=== PATIENT | female | born 1990 | race American Indian/Alaskan Native ===

== ENCOUNTER 2017-08-20 12:19 | Emergency (ER) | payer MEDICAID ==
[2017-08-20 12:58] VITALS: BP 140/72
[2017-08-20] MEDS ORDERED: TESSALON PERLES PO ONE (15:13)
[2017-08-20] MEDS ORDERED: MOTRIN PO ONE (15:13)
--- NOTE | 2017-08-20 16:14 | Emergency Department Report ---
- General Chief Complaint: Upper Respiratory Infection Stated Complaint: COUGH/COLD Time Seen by Provider: 08/20/17 15:11 Source: patient Mode of arrival: Ambulatory Limitations: No Limitations - History of Present Illness Initial Comments: This is a 26-year-old female nontoxic, well nourished in appearance, no acute signs of distress presents to the ED with c/o of productive cough, sore throat, rhinorrhea, nasal congestion, and frontal sinus pain x3 days. Patient describers productive cough as yellow/green mucus production. Patient denies any body aches. Patient denies any recent travels, long car rides, recent hospital stays. Patient denies any calf pain or calf tenderness. Denies any hemoptysis. Patient denies chest pain, shortness of breath, fever, chills, nausea, vomiting, headache, stiff neck, numbness, tingling. Patient states allergies to PCN. Denies significant PMH. MD Complaint: cough, rhinorrhea, nasal congestion, sinus pain -: days(s) (3) Severity: mild Severity scale (0 -10): 8 Quality: aching Consistency: constant Improves With: nothing Worsens With: nothing Associated Symptoms: headache (frontal sinus pain), rhinorrhea, nasal congestion , sore throat, cough. denies: fever, chills, myalgias, diaphoresis, stiff neck , chest pain, shortness of breath, abdominal pain, nausea, vomiting, diarrhea, dysuria, rash, confusion, right sweats, weight loss, epistaxis, hoarseness, ear pain Treatments Prior to Arrival: none - Related Data Previous Rx's Medication Instructions Recorded Last Taken Type Ibuprofen [Motrin] 800 mg PO Q8H PRN #30 tablet 12/18/14 Unknown Rx Phenazopyridine [Pyridium] 100 mg PO PC #10 tablet 12/18/14 Unknown Rx Sulfamethoxazole/Trimethoprim 1 each PO BID #14 tablet 12/18/14 Unknown Rx [Bactrim Ds] traMADol [Ultram] 50 mg PO Q6HR PRN #14 tablet 12/18/14 Unknown Rx Ibuprofen [Motrin] 800 mg PO Q8HR PRN #15 tablet 04/15/15 Unknown Rx methylPREDNISolone [Medrol Dose 4 mg PO QAM #1 pack 04/15/15 Unknown Rx Fly] Hyoscyamine Subl [Levsin Sl 0.125 0.125 mg SL Q6HR PRN #14 tablet 07/30/15 Unknown Rx TAB] Ondansetron [Zofran Odt] 4 mg PO Q4H PRN #14 tab.rapdis 07/30/15 Unknown Rx traMADol [Ultram] 50 mg PO Q6HR PRN #20 tablet 07/30/15 Unknown Rx Oxycodone HCl/Acetaminophen 1 each PO Q6HR PRN #15 tablet 09/03/15 Unknown Rx [Percocet 7.5/325 mg] Ondansetron [Zofran Odt] 4 mg PO Q8HR #15 tab.rapdis 09/04/15 Unknown Rx Ferrous Sulfate [Feosol 325 MG tab] 325 mg PO BID #60 tablet 06/15/16 Unknown Rx Ibuprofen [Motrin 800 MG tab] 800 mg PO Q8HR PRN #30 tablet 06/15/16 Unknown Rx Vit-Fe Fumar-FA [ 1 tab PO QDAY #30 tablet 06/15/16 Unknown Rx Vitamin] oxyCODONE /ACETAMINOPHEN [Percocet 1 tab PO Q6HR PRN #40 tablet 06/15/16 Unknown Rx 5/325] Azithromycin [Zithromax Z-FLY] 250 mg PO DAILY #6 tablet 08/20/17 Unknown Rx Allergies Allergy/AdvReac Type Severity Reaction Status Date / Time Penicillins Allergy Swelling Verified 08/20/17 12:53 ED Review of Systems ROS: Stated complaint: COUGH/COLD Other details as noted in HPI Constitutional: denies: chills, fever Eyes: denies: eye pain, eye discharge, vision change ENT: denies: ear pain, throat pain Respiratory: cough. denies: shortness of breath, wheezing Cardiovascular: denies: chest pain, palpitations Endocrine: no symptoms reported Gastrointestinal: denies: abdominal pain, nausea, diarrhea Genitourinary: denies: urgency, dysuria, discharge Musculoskeletal: denies: back pain, joint swelling, arthralgia Skin: denies: rash, lesions Neurological: denies: headache, weakness, paresthesias Psychiatric: denies: anxiety, depression Hematological/Lymphatic: denies: easy bleeding, easy bruising ED Past Medical Hx - Past Medical History Previous Medical History?: Yes Hx Hypertension: No Hx Congestive Heart Failure: No Hx Diabetes: No Hx Deep Vein Thrombosis: No Hx Renal Disease: No Hx Sickle Cell Disease: No Hx Seizures: No Hx Asthma: No Hx COPD: No Hx HIV: No Additional medical history: morbid obesity - Surgical History Past Surgical History?: Yes Additional Surgical History: right ankle surgery, tonsillectomy - Social History Smoking Status: Never Smoker Substance Use Type: None - Medications Home Medications: Home Medications Medication Instructions Recorded Confirmed Last Taken Type Ibuprofen [Motrin] 800 mg PO Q8H PRN #30 tablet 12/18/14 06/15/16 Unknown Rx Phenazopyridine [Pyridium] 100 mg PO PC #10 tablet 12/18/14 06/15/16 Unknown Rx Sulfamethoxazole/Trimethoprim 1 each PO BID #14 tablet 12/18/14 06/15/16 Unknown Rx [Bactrim Ds] traMADol [Ultram] 50 mg PO Q6HR PRN #14 tablet 12/18/14 06/15/16 Unknown Rx Ibuprofen [Motrin] 800 mg PO Q8HR PRN #15 tablet 04/15/15 06/15/16 Unknown Rx methylPREDNISolone [Medrol Dose 4 mg PO QAM #1 pack 04/15/15 06/15/16 Unknown Rx Fly] Hyoscyamine Subl [Levsin Sl 0.125 0.125 mg SL Q6HR PRN #14 tablet 07/30/1506/15 Unknown Rx TAB] Ondansetron [Zofran Odt] 4 mg PO Q4H PRN #14 tab.rapdis 07/30/15 06/15/16 Unknown Rx traMADol [Ultram] 50 mg PO Q6HR PRN #20 tablet 07/30/15 06/15/16 Unknown Rx Oxycodone HCl/Acetaminophen 1 each PO Q6HR PRN #15 tablet 09/03/15 06/15/16 Unknown Rx [Percocet 7.5/325 mg] Ondansetron [Zofran Odt] 4 mg PO Q8HR #15 tab.rapdis 09/04/15 06/15/16 Unknown Rx Ferrous Sulfate [Feosol 325 MG tab] 325 mg PO BID #60 tablet 06/15/16 Unknown Rx Ibuprofen [Motrin 800 MG tab] 800 mg PO Q8HR PRN #30 tablet 06/15/16 Unknown Rx Vit-Fe Fumar-FA [ 1 tab PO QDAY #30 tablet 06/15/16 Unknown Rx Vitamin] oxyCODONE /ACETAMINOPHEN [Percocet 1 tab PO Q6HR PRN #40 tablet 06/15/16 Unknown Rx 5/325] Azithromycin [Zithromax Z-FLY] 250 mg PO DAILY #6 tablet 08/20/17 Unknown Rx ED Physical Exam - General Limitations: No Limitations General appearance: alert, in no apparent distress - Head Head exam: Present: atraumatic, normocephalic, normal inspection - Eye Eye exam: Present: normal appearance, PERRL, EOMI. Absent: scleral icterus, conjunctival injection, nystagmus, periorbital swelling, periorbital tenderness Pupils: Present: normal accommodation - ENT ENT exam: Present: mucous membranes moist, TM's normal bilaterally, normal external ear exam - Expanded ENT Exam Expanded Ear exam: Present: normal external inspection Mouth exam: Present: normal external inspection, tongue normal. Absent: drooling, trismus, muffled voice, tongue elevation, laceration Teeth exam: Present: normal inspection Throat exam: Positive: tonsillar erythema, other (Uvula midline. No abscess or swelling noted. ). Negative: tonsillomegaly, tonsillar exudate, R peritonsillar mass, L peritonsillar mass - Neck Neck exam: Present: normal inspection, full ROM. Absent: tenderness, meningismus, lymphadenopathy, thyromegaly - Respiratory Respiratory exam: Present: normal lung sounds bilaterally. Absent: respiratory distress, wheezes, rales, rhonchi, stridor, chest wall tenderness, accessory muscle use, decreased breath sounds, prolonged expiratory - Cardiovascular Cardiovascular Exam: Present: regular rate, normal rhythm, normal heart sounds. Absent: irregular rhythm, systolic murmur, diastolic murmur, rubs, gallop - GI/Abdominal GI/Abdominal exam: Present: soft, normal bowel sounds. Absent: distended, tenderness, guarding, rebound, rigid, diminished bowel sounds - Rectal Rectal exam: Present: deferred - Extremities Exam Extremities exam: Present: normal inspection, full ROM, normal capillary refill. Absent: tenderness, pedal edema, joint swelling, calf tenderness - Back Exam Back exam: Present: normal inspection, full ROM. Absent: tenderness, CVA tenderness (R), CVA tenderness (L), muscle spasm, paraspinal tenderness, vertebral tenderness, rash noted - Neurological Exam Neurological exam: Present: alert, oriented X3, CN II-XII intact, normal gait, reflexes normal - Psychiatric Psychiatric exam: Present: normal affect, normal mood - Skin Skin exam: Present: warm, dry, intact, normal color. Absent: rash - Other Other exam information: Positive frontal sinus tenderness. ED Course Vital Signs 08/20/17 12:54 Temperature 98.8 F Pulse Rate 100 H Respiratory 18 Rate Blood Pressure 140/72 O2 Sat by Pulse 97 Oximetry - Reevaluation(s) Reevaluation #1: 08/20/17 16:17 Patient is speaking in full sentences with no signs of distress noted. ED Medical Decision Making - Medical Decision Making This is a 26-year-old female that presents with upper respiratory infection and Sinusitis. Patient is stable and was examined by me. Chest xray has not been obtained due to patient being . Influenza swab negative. Vital signs stable prior to discharge. Patient is afebrile. Normal heart rate. I'll treat patient with zpack due to type 1 allergies to PCN at discharge due to patient stating symptoms are worsening. Patient was rehydrated in the ER and patient tolerated well with no signs of nasuea or vomiting. Patient was instructed to rest and increase hydration and take Tylenol for fever as directed. Patient was instructed Follow-up with a primary care doctor in 3-5 days or if symptoms worsen and continue return to emergency room as soon as possible. At time time of discharge, the patient does not seem toxic or ill in appearance. No acute signs of distress noted. Patient agrees to discharge treatment plan of care. No further questions noted by the patient. Critical care attestation.: If time is entered above; I have spent that time in minutes in the direct care of this critically ill patient, excluding procedure time. ED Disposition Clinical Impression: Upper respiratory infection Qualifiers: URI type: unspecified URI Qualified Code(s): J06.9 - Acute upper respiratory infection, unspecified Sinusitis Qualifiers: Sinusitis location: frontal Chronicity: acute Recurrence: non-recurrent Qualified Code(s): J01.10 - Acute frontal sinusitis, unspecified Disposition: DC-01 TO HOME OR SELFCARE Is pt being admited?: No Does the pt Need Aspirin: No Condition: Stable Instructions: Azithromycin (By mouth), Sinusitis (ED), Upper Respiratory Infection (ED) Additional Instructions: Follow-up with a primary care doctor in 3-5 days or if symptoms worsen and continue return to emergency room as soon as possible. Prescriptions: Azithromycin [Zithromax Z-FLY] 250 mg PO DAILY #6 tablet Referrals: PRIMARY CAREMD [Primary Care Provider] - 3-5 Days NAM CONCEPCION MD [Staff Physician] - 3-5 Days [facility] [Outside] - 3-5 Days [facility] [Outside] - 3-5 Days Forms: Work/School Release Form(ED)
== END 2017-08-20 16:47 | disposition home or self-care (01) ==
LOC: ED 12:19
DX: J01.10 Acute frontal sinusitis, unspecified (principal); J06.9 Acute upper respiratory infection, unspecified
CPT/HCPCS: 87400; 99282

== ENCOUNTER 2017-10-06 16:43 | Emergency (ER) | payer MEDICAID ==
[2017-10-06] MEDS ORDERED: TYLENOL PO ONE (17:31)
--- NOTE | 2017-10-06 17:35 | Emergency Department Report ---
Chief Complaint: Vaginal Bleeding Stated Complaint: 18 WKS /VAGINAL BLEEDING - HPI History of Present Illness: 26-year-old patient with 18 week twin gestation presents with vaginal spotting and pelvic cramping. She has several weeks of vaginal irritation not improved with [id number] topical medications. - Exam Vital Signs: Vital Signs 10/06/17 16:53 Temperature 98.4 F Pulse Rate 97 H Respiratory 18 Rate Blood Pressure 133/66 [Left] O2 Sat by Pulse 97 Oximetry MSE screening note: Focused history and physical exam performed. Due to findings the following was ordered: ED Disposition for MSE Condition: Stable
[2017-10-06 17:48] LABS: Basophils # (Auto) 0.1 K/mm3 (0.0-0.1); Basophils % (Auto) 0.6 % (0.0-1.8); Eosinophils # (Auto) 0.3 K/mm3 (0.0-0.4); Eosinophils % (Auto) 2.4 % (0.0-4.3); Hematocrit 35.1 % (30.3-42.9); Hemoglobin 11.3 gm/dl (10.1-14.3); Lymphocytes # (Auto) 2.2 K/mm3 (1.2-5.4); Lymphocytes % (Auto) 18.2 % (13.4-35.0); Mean Corpuscular HGB Conc 32 % (30-34); Mean Corpuscular Volume 77 fl (79-97); Monocytes # (Auto) 0.8 K/mm3 (0.0-0.8); Monocytes % (Auto) 6.4 % (0.0-7.3); Platelet Count 332 K/mm3 (140-440); Red Blood Count 4.54 M/mm3 (3.65-5.03)
[2017-10-06 17:49] LABS: Mean Corpuscular Hemoglobin 25 pg (28-32)
[2017-10-06 17:51] LABS: Bacteria,Urine 1+ /HPF (Negative); Bilirubin,Urine NEG (Negative); Blood,Urine SM (Negative); Color,Urine Yellow (Yellow); Mucus,Urine 1+ /HPF; Protein,Urine <15 mg/dL mg/dL (Negative); Urobilinogen,Urine < 2.0 mg/dL (<2.0)
--- NOTE | 2017-10-06 17:53 | Emergency Department Report ---
ED Female HPI - General Chief complaint: Vaginal Bleeding Stated complaint: 18 WKS /VAGINAL BLEEDING Time Seen by Provider: 10/06/17 17:38 Source: patient, family Mode of arrival: Ambulatory Limitations: No Limitations - History of Present Illness Initial comments: Patient reports 18 weeks with twins and noticed she is spotting today. She is not using any pads. She says she only noticed blood when she wipes. She reports some lower abdominal cramping and period cramping is 4 out of 10. No alleviating factor no excessive bathing and factors. Patient is [facility] Angela whom she saw on 08/28/2017 and ultrasound was done and she said ultrasound was normal. She is 4 para 3 with no history of miscarriage. Patient says she is high risk and so she doesn't know why. She denies any medical problem but patient has a BMI of 59.9. Denies any chest pain. Denies any vaginal discharge. Denies any back pain. Denies any nausea vomiting or diarrhea. MD Complaint: vaginal bleeding, dysuria, pelvic pain -: This morning Location: suprapubic Radiation: non-radiating Severity: mild Severity scale (0 -10): 4 Quality: cramping Consistency: intermittent Improves with: none Worsens with: none Are you Now?: Yes (18 weeks with twins) Associated Symptoms: vaginal bleeding, abdominal pain, dysuria, other (is also complaining of yeast infection external vaginal area that she's been treated for 2 weeks with [id number] medication). denies: vaginal discharge, nausea/vomiting, fever/chills, headaches, loss of appetite, hematuria, rash, seizure, shortness of breath, syncope, weakness - Related Data Sexually active: Yes Previous Rx's Medication Instructions Recorded Last Taken Type Ibuprofen [Motrin] 800 mg PO Q8H PRN #30 tablet 12/18/14 Unknown Rx Phenazopyridine [Pyridium] 100 mg PO PC #10 tablet 12/18/14 Unknown Rx Sulfamethoxazole/Trimethoprim 1 each PO BID #14 tablet 12/18/14 Unknown Rx [Bactrim Ds] traMADol [Ultram] 50 mg PO Q6HR PRN #14 tablet 12/18/14 Unknown Rx Ibuprofen [Motrin] 800 mg PO Q8HR PRN #15 tablet 04/15/15 Unknown Rx methylPREDNISolone [Medrol Dose 4 mg PO QAM #1 pack 04/15/15 Unknown Rx Tawanda] Hyoscyamine Subl [Levsin Sl 0.125 0.125 mg SL Q6HR PRN #14 tablet 07/30/15 Unknown Rx TAB] Ondansetron [Zofran Odt] 4 mg PO Q4H PRN #14 tab.rapdis 07/30/15 Unknown Rx traMADol [Ultram] 50 mg PO Q6HR PRN #20 tablet 07/30/15 Unknown Rx Oxycodone HCl/Acetaminophen 1 each PO Q6HR PRN #15 tablet 09/03/15 Unknown Rx [Percocet 7.5/325 mg] Ondansetron [Zofran Odt] 4 mg PO Q8HR #15 tab.rapdis 09/04/15 Unknown Rx Ferrous Sulfate [Feosol 325 MG tab] 325 mg PO BID #60 tablet 06/15/16 Unknown Rx Ibuprofen [Motrin 800 MG tab] 800 mg PO Q8HR PRN #30 tablet 06/15/16 Unknown Rx Vit-Fe Fumar-FA [ 1 tab PO QDAY #30 tablet 06/15/16 Unknown Rx Vitamin] oxyCODONE /ACETAMINOPHEN [Percocet 1 tab PO Q6HR PRN #40 tablet 06/15/16 Unknown Rx 5/325] Azithromycin [Zithromax Z-TAWANDA] 250 mg PO DAILY #6 tablet 08/20/17 Unknown Rx Nitrofurantoin Monohyd/M-Cryst 100 mg PO Q12H 7 Days #14 capsule 10/06/17 Unknown Rx [Macrobid 100 mg Capsule] Nystatin Cream [Mycostatin Cream] 1 applic TP BID 7 Days #1 tube 10/06/17 Unknown Rx Allergies Allergy/AdvReac Type Severity Reaction Status Date / Time Penicillins Allergy Swelling Verified 08/20/17 12:53 ED Review of Systems ROS: Stated complaint: 18 WKS /VAGINAL BLEEDING Other details as noted in HPI Comment: All other systems reviewed and negative Constitutional: no symptoms reported Eyes: denies: eye pain, eye discharge ENT: denies: ear pain, throat pain, congestion Respiratory: no symptoms reported Cardiovascular: denies: chest pain, palpitations, dyspnea on exertion, orthopnea , edema, syncope, paroxysmal nocturnal dyspnea Gastrointestinal: denies: abdominal pain, nausea, vomiting, diarrhea, constipation, hematemesis, melena, hematochezia Genitourinary: dysuria, hematuria, other (redness and swelling with itching to the external vaginal area). denies: urgency, frequency, discharge Musculoskeletal: denies: back pain, joint swelling, arthralgia, myalgia Skin: denies: rash Neurological: denies: headache, weakness, numbness, paresthesias, confusion, abnormal gait, vertigo ED Past Medical Hx - Past Medical History Previous Medical History?: Yes Hx Hypertension: No Hx Congestive Heart Failure: No Hx Diabetes: No Hx Deep Vein Thrombosis: No Hx Renal Disease: No Hx Sickle Cell Disease: No Hx Seizures: No Hx Asthma: No Hx COPD: No Hx HIV: No Additional medical history: morbid obesity - Surgical History Past Surgical History?: Yes Additional Surgical History: right ankle surgery, tonsillectomy - Family History Family history: hypertension - Social History Smoking Status: Never Smoker Substance Use Type: None - Medications Home Medications: Home Medications Medication Instructions Recorded Confirmed Last Taken Type Ibuprofen [Motrin] 800 mg PO Q8H PRN #30 tablet 12/18/14 06/15/16 Unknown Rx Phenazopyridine [Pyridium] 100 mg PO PC #10 tablet 12/18/14 06/15/16 Unknown Rx Sulfamethoxazole/Trimethoprim 1 each PO BID #14 tablet 12/18/14 06/15/16 Unknown Rx [Bactrim Ds] traMADol [Ultram] 50 mg PO Q6HR PRN #14 tablet 12/18/14 06/15/16 Unknown Rx Ibuprofen [Motrin] 800 mg PO Q8HR PRN #15 tablet 04/15/15 06/15/16 Unknown Rx methylPREDNISolone [Medrol Dose 4 mg PO QAM #1 pack 04/15/15 06/15/16 Unknown Rx Tawanda] Hyoscyamine Subl [Levsin Sl 0.125 0.125 mg SL Q6HR PRN #14 tablet 07/30/1506/15 Unknown Rx TAB] Ondansetron [Zofran Odt] 4 mg PO Q4H PRN #14 tab.rapdis 07/30/15 06/15/16 Unknown Rx traMADol [Ultram] 50 mg PO Q6HR PRN #20 tablet 07/30/15 06/15/16 Unknown Rx Oxycodone HCl/Acetaminophen 1 each PO Q6HR PRN #15 tablet 09/03/15 06/15/16 Unknown Rx [Percocet 7.5/325 mg] Ondansetron [Zofran Odt] 4 mg PO Q8HR #15 tab.rapdis 09/04/15 06/15/16 Unknown Rx Ferrous Sulfate [Feosol 325 MG tab] 325 mg PO BID #60 tablet 06/15/16 Unknown Rx Ibuprofen [Motrin 800 MG tab] 800 mg PO Q8HR PRN #30 tablet 06/15/16 Unknown Rx Vit-Fe Fumar-FA [ 1 tab PO QDAY #30 tablet 06/15/16 Unknown Rx Vitamin] oxyCODONE /ACETAMINOPHEN [Percocet 1 tab PO Q6HR PRN #40 tablet 06/15/16 Unknown Rx 5/325] Azithromycin [Zithromax Z-TAWANDA] 250 mg PO DAILY #6 tablet 08/20/17 Unknown Rx Nitrofurantoin Monohyd/M-Cryst 100 mg PO Q12H 7 Days #14 capsule 10/06/17 Unknown Rx [Macrobid 100 mg Capsule] Nystatin Cream [Mycostatin Cream] 1 applic TP BID 7 Days #1 tube 10/06/17 Unknown Rx ED Physical Exam - General Limitations: No Limitations General appearance: alert, in no apparent distress - Head Head exam: Present: atraumatic, normocephalic, normal inspection - Eye Eye exam: Present: normal appearance, PERRL, EOMI. Absent: scleral icterus, conjunctival injection, nystagmus, periorbital swelling, periorbital tenderness Pupils: Present: normal accommodation - ENT ENT exam: Present: normal exam, normal orophraynx, mucous membranes moist - Neck Neck exam: Present: normal inspection, full ROM. Absent: tenderness, meningismus, lymphadenopathy, thyromegaly, other - Respiratory Respiratory exam: Present: normal lung sounds bilaterally. Absent: respiratory distress, chest wall tenderness, accessory muscle use - Cardiovascular Cardiovascular Exam: Present: regular rate, normal rhythm, normal heart sounds. Absent: systolic murmur, diastolic murmur - GI/Abdominal GI/Abdominal exam: Present: soft, normal bowel sounds. Absent: distended, tenderness, guarding, rebound, rigid, organomegaly, mass, bruit, pulsatile mass , hernia - External exam: Present: erythema, swelling. Absent: normal external exam, lesions, lacerations, ecchymosis, bleeding - Extremities Exam Extremities exam: Present: normal inspection, full ROM, normal capillary refill , other (no clubbing, cyanosis or edema. +2 pulses all extremities and no neurovascular compromise). Absent: tenderness, pedal edema, joint swelling, calf tenderness - Back Exam Back exam: Present: normal inspection, full ROM, other (ambulates without difficulties). Absent: tenderness, CVA tenderness (R), CVA tenderness (L), muscle spasm, paraspinal tenderness, vertebral tenderness, rash noted - Neurological Exam Neurological exam: Present: alert, oriented X3, normal gait, reflexes normal. Absent: motor sensory deficit - Psychiatric Psychiatric exam: Present: normal affect, normal mood - Skin Skin exam: Present: warm, dry, intact, normal color. Absent: rash ED Course Vital Signs 10/06/17 10/06/17 10/06/17 16:53 18:07 21:15 Temperature 98.4 F 98.2 F Pulse Rate 97 H 90 Respiratory 18 15 20 Rate Blood Pressure 127/68 Blood Pressure 133/66 [Left] O2 Sat by Pulse 97 100 Oximetry - Reevaluation(s) Reevaluation #1: 10/06/17 19:50 Patient stable and awaiting ultrasound. No pelvic cramping or bleeding at present Reevaluation #2: 10/06/17 20:05 Patiently urinary tract infection to start on Macrobid. Ultrasound reports with twin A and B normal exam. Await in RhoGAM Reevaluation #3: 10/06/17 21:01 Patient received Rhogam IM due to Rh- status without any adverse reaction ED Medical Decision Making - Lab Data Result diagrams: 10/06/17 17:36 10/06/17 17:36 Lab Results 10/06/17 10/06/17 10/06/17 Range/Units 17:36 17:36 17:36 WBC 12.3 H (4.5-11.0) K/mm3 RBC 4.54 (3.65-5.03) M/mm3 Hgb 11.3 (10.1-14.3) gm/dl Hct 35.1 (30.3-42.9) % MCV 77 L (79-97) fl MCH 25 L (28-32) pg MCHC 32 (30-34) % RDW 16.0 H (13.2-15.2) % Plt Count 332 (140-440) K/mm3 Lymph % (Auto) 18.2 (13.4-35.0) % Garrett % (Auto) 6.4 (0.0-7.3) % Eos % (Auto) 2.4 (0.0-4.3) % Baso % (Auto) 0.6 (0.0-1.8) % Lymph # 2.2 (1.2-5.4) K/mm3 Garrett # 0.8 (0.0-0.8) K/mm3 Eos # 0.3 (0.0-0.4) K/mm3 Baso # 0.1 (0.0-0.1) K/mm3 Seg Neutrophils % 72.4 H (40.0-70.0) % Seg Neutrophils # 8.9 H (1.8-7.7) K/mm3 Sodium 134 L (137-145) mmol/L Potassium 3.7 (3.6-5.0) mmol/L Chloride 97.6 L (98-107) mmol/L Carbon Dioxide 21 L (22-30) mmol/L Anion Gap 19 mmol/L BUN 6 L (7-17) mg/dL Creatinine 0.4 L (0.7-1.2) mg/dL Estimated GFR > 60 ml/min BUN/Creatinine Ratio 15 % Glucose 90 (65-100) mg/dL Calcium 9.0 (8.4-10.2) mg/dL HCG, Quant (0-4) mIU/mL Urine Color Yellow (Yellow) Urine Turbidity Clear (Clear) Urine pH 5.0 (5.0-7.0) Ur Specific [place] 1.024 (1.003-1.030) Urine Protein <15 mg/dl (Negative) mg/dL Urine Glucose (UA) Neg (Negative) mg/dL Urine Ketones Neg (Negative) mg/dL Urine Blood Sm (Negative) Urine Nitrite Neg (Negative) Urine Bilirubin Neg (Negative) Urine Urobilinogen < 2.0 (<2.0) mg/dL Ur Leukocyte Esterase Sm (Negative) Urine WBC (Auto) 6.0 (0.0-6.0) /HPF Urine RBC (Auto) 5.0 (0.0-6.0) /HPF U Epithel Cells (Auto) 5.0 (0-13.0) /HPF Urine Bacteria (Auto) 1+ (Negative) /HPF Urine Mucus 1+ /HPF Blood Type 10/06/17 10/06/17 Range/Units 17:36 17:45 WBC (4.5-11.0) K/mm3 RBC (3.65-5.03) M/mm3 Hgb (10.1-14.3) gm/dl Hct (30.3-42.9) % MCV (79-97) fl MCH (28-32) pg MCHC (30-34) % RDW (13.2-15.2) % Plt Count (140-440) K/mm3 Lymph % (Auto) (13.4-35.0) % Garrett % (Auto) (0.0-7.3) % Eos % (Auto) (0.0-4.3) % Baso % (Auto) (0.0-1.8) % Lymph # (1.2-5.4) K/mm3 Garrett # (0.0-0.8) K/mm3 Eos # (0.0-0.4) K/mm3 Baso # (0.0-0.1) K/mm3 Seg Neutrophils % (40.0-70.0) % Seg Neutrophils # (1.8-7.7) K/mm3 Sodium (137-145) mmol/L Potassium (3.6-5.0) mmol/L Chloride (98-107) mmol/L Carbon Dioxide (22-30) mmol/L Anion Gap mmol/L BUN (7-17) mg/dL Creatinine (0.7-1.2) mg/dL Estimated GFR ml/min BUN/Creatinine Ratio % Glucose (65-100) mg/dL Calcium (8.4-10.2) mg/dL HCG, Quant 7588 H (0-4) mIU/mL Urine Color (Yellow) Urine Turbidity (Clear) Urine pH (5.0-7.0) Ur Specific [place] (1.003-1.030) Urine Protein (Negative) mg/dL Urine Glucose (UA) (Negative) mg/dL Urine Ketones (Negative) mg/dL Urine Blood (Negative) Urine Nitrite (Negative) Urine Bilirubin (Negative) Urine Urobilinogen (<2.0) mg/dL Ur Leukocyte Esterase (Negative) Urine WBC (Auto) (0.0-6.0) /HPF Urine RBC (Auto) (0.0-6.0) /HPF U Epithel Cells (Auto) (0-13.0) /HPF Urine Bacteria (Auto) (Negative) /HPF Urine Mucus /HPF Blood Type O NEGATIVE Urine culture pending - Radiology Data Radiology results: report reviewed Ultrasound OB elevated and transvaginal twin A at 18 weeks and 3 days. heart rate is at 165 bpm. Twin B at 17 weeks and 6 days and heart rate is that one in December 48 bpm. Both her IUP. No placental abnormality and uterine os is closed. Normal amniotic fluid. No mention of subchorionic bleed. - Medical Decision Making ED course: She reports that she has been having vaginal spotting and some abdominal cramping since this morning. She is 18 weeks with twins and been followed by [facility] which she had ultrasound on 08/28/2017 which she states was normal. Please refer to radiology section for detail on ultrasound and lab section for details on lab results. Patient's CBC with mild elevation white count, bacterial shifted to the left, otherwise stable, urinalysis with acute cystitis, positive hCG and ultrasound reveals +2 and without any abnormalities and normal heartbeat with twin A in the B. patient is Rh- and knee swelling RhoGAM. She received RhoGAM in the emergency room that any adverse reaction. She has received RhoGAM in the past without any adverse reaction. Patient also found to have yeast vulvovaginitis and she says she's been treating this over the past 2 weeks without any positive results. Patient reports that she has been using [id number] antifungal cream. BMP is stable except for some minor abnormalities which patient is able to eat injury without any difficulties. All lab works, ultrasound reports and medication treatment plan discussed with patient and her family. I spoke with Dr. Ernie Alexander from [facility] and she is up-to-date on patient treatment plan. Patient discharged from ED with prescription for Macrobid to treat UTI, nystatin topical cream to treat vulva vaginitis. She is to follow- up with [facility] in one to 2 days. She voiced understanding of the follow-up. I discussed with her if she develops increased vaginal bleeding and/or increased abdominal pain to return to the emergency room otherwise to follow-up with her [facility] Critical care attestation.: If time is entered above; I have spent that time in minutes in the direct care of this critically ill patient, excluding procedure time. ED Disposition Clinical Impression: Threatened miscarriage, Vulvovaginitis due to [place], Acute cystitis during in second trimester, Vaginal bleeding before 22 weeks gestation, Need for rhogam due to Rh negative mother Abdominal pain Qualifiers: Abdominal location: lower abdomen, unspecified Qualified Code(s): R10.30 - Lower abdominal pain, unspecified Disposition: - TO HOME OR SELFCARE Is pt being admited?: No Does the pt Need Aspirin: No Condition: Stable Instructions: Rho(D) Immune Globulin (Injection), Threatened Miscarriage (ED), Urinary Tract Infection in Women (ED), Vulvovaginal Candidiasis (ED), Abdominal Pain in (ED) Additional Instructions: Follow-up with your [facility] which is [facility] in 1-2 days. Call tomorrow to schedule an appointment Please use Macrobid for urinary tract infection Please use nystatin for yeast infection Increasing fluid intake If you develop increased vaginal bleeding and or abdominal pain please return to the emergency room INA Prescriptions: Nitrofurantoin Monohyd/M-Cryst [Macrobid 100 mg Capsule] 100 mg PO Q12H 7 Days # 14 capsule Nystatin Cream [Mycostatin Cream] 1 applic TP BID 7 Days #1 tube Referrals: [facility] [Provider Group] - 10/07/17 Forms: Accompanied Note, Work/School Release Form(ED)
[2017-10-06 18:04] LABS: BUN/Creatinine Ratio 15; Blood Urea Nitrogen 6 mg/dL (7-17); Hemolysis Index 0
--- NOTE | 2017-10-06 19:40 | Ultrasound Report ---
FINAL REPORT PROCEDURE: US OB > = 14 WEEKS FETUS-fetus A TECHNIQUE: Real-time transabdominal sonography of the uterus, placenta, amniotic fluid, adnexa, and fetus was performed with image documentation. Measurements were obtained to determine age/size. M-mode Doppler was used to document heartbeat. CPT 36806 HISTORY: spotting/twin preg fetus A on the current study. Fetus B will be dictated separately COMPARISON: Ultrasound fetus B twins today FINDINGS: ADDITIONAL GESTATION: Fetus B dictated separately Fetus A GENERAL: Twin . This is examination regarding fetus A Position: Breech Placental position: Grade 0, without previa. Amniotic fluid volume: Normal. MATERNAL: Uterus: Within normal limits. Cervical length: 3.4 cm. Internal Os: Closed. FETUS: Heart rate and rhythm: 165 BPM, Regular. MEASUREMENTS: BPD: 4.2 centimeters consistent 18 weeks 4 days HC: 15.8 consistent 18 weeks 3 days AC: 13.2 consistent 18 weeks 5 days FL: 2.6 consistent 18 week 0 days Mean Gestational Age (composite criteria): 18 weeks 3 days Ratio biometry: Cephalic index 82.4 Estimated Weight: 237 grams. Estimated Due Date (earliest scan): 03/06/2018 IMPRESSION: Fetus A intrauterine gestation at 18 weeks 3 days. Estimated due date: 03/06/2018. Normal survey with appropriate growth. Fetus B will be dictated separately.
--- NOTE | 2017-10-06 19:51 | Ultrasound Report ---
FINAL REPORT PROCEDURE: US OB > = 14 WK FETUS ADD GEST- Fetus B TECHNIQUE: Real-time transabdominal sonography of the uterus, placenta, amniotic fluid, adnexa, and fetus was performed with image documentation. Measurements were obtained to determine age/size. M-mode Doppler was used to document heartbeat. CPT 25337 HISTORY: vaginal bleeding vaginal spotting twin gestation. Twin . Current study regarding fetus B. fetus A dictated separately. COMPARISON: Fetus A earlier today. This study is regarding fetus B. FINDINGS: ADDITIONAL GESTATION: Twins. Current study is fetus B GENERAL: FETUS B IUP: Single living intrauterine . Position: Breech Placental position: Grade 0, without previa. Amniotic fluid volume: Normal. MATERNAL: Uterus: Within normal limits. Cervical length: 3.4 cm. Internal Os: Closed. FETUS: Heart rate and rhythm: 148 BPM, Regular. MEASUREMENTS: BPD: 4 centimeters consistent 18 weeks 0 days HC: 14.3 consistent 17 week 4 days AC: 12.3 consistent 18 week 0 day FL: 2.6 consistent 18 week 0 days Mean Gestational Age (composite criteria): 17 weeks 6 days Ratio biometry: Cephalic index 79.9 Estimated Weight: 218 grams. Estimated Due Date (earliest scan): 02/28/2018 IMPRESSION: Fetus B intrauterine gestation 17 week 6 day age. Estimated due date: 03/10/2018. Normal survey of fetus B. Fetus A was dictated separately
[2017-10-06 21:16] VITALS: BP 127/68
== END 2017-10-06 21:25 | disposition home or self-care (01) ==
LOC: ED 16:43
DX: O20.0 Threatened abortion (principal); O23.592 Infection of other part of genital tract in pregnancy, second trimester; N76.0 Acute vaginitis; O23.12 Infections of bladder in pregnancy, second trimester; R10.30 Lower abdominal pain, unspecified; Z3A.18 18 weeks gestation of pregnancy
CPT/HCPCS: 36415; 76805; 76810; 80048; 81001; 84702; 85025; 85461; 86850; 86900; 86901; 87086; 99284; J2790

== ENCOUNTER 2017-12-10 13:39 | Outpatient (CLI) | payer MEDICAID ==
[2017-12-10 14:11] VITALS: BP 114/66
[2017-12-10] MEDS ORDERED: FIORICET PO PRN (14:57)
--- NOTE | 2017-12-11 07:19 | Ultrasound Report ---
Limited OB sonogram: Twin: Baby A History: heart rate. Findings: Gestation: Single Heart Rate: 166 BPM Baby B: Findings: Gestation: Single Position: Breech Heart Rate: 143 BPM
== END 2017-12-10 16:24 | disposition home or self-care (01) ==
LOC: TRG 13:39
PROVIDERS: ATTEND Obstetrics & Gynecology
DX: O32.1XX0 Maternal care for breech presentation, not applicable or unspecified (principal); O47.02 False labor before 37 completed weeks of gestation, second trimester; Z3A.27 27 weeks gestation of pregnancy
CPT/HCPCS: 59025; 76815

== ENCOUNTER 2018-01-11 19:21 | Outpatient (CLI) | payer MEDICAID ==
[2018-01-11] MEDS ORDERED: LACTATED RINGERS 500 ML IV ONE (20:00)
[2018-01-11] MEDS ORDERED: BRETHINE SUB-Q ONE ×2 (20:07→21:43)
[2018-01-11 21:11] VITALS: BP 110/53
[2018-01-11] MEDS ORDERED: VISTARIL PO PRN (22:00)
[2018-01-11 22:34] LABS: Bilirubin,Urine NEG (Negative); Blood,Urine NEG (Negative); Color,Urine Yellow (Yellow); Mucus,Urine 2+ /HPF
== END 2018-01-11 23:11 | disposition home or self-care (01) ==
LOC: TRG 19:21
PROVIDERS: ATTEND Obstetrics & Gynecology
DX: O47.03 False labor before 37 completed weeks of gestation, third trimester (principal); Z3A.32 32 weeks gestation of pregnancy
CPT/HCPCS: 36415; 59025; 81001; 82731; 96360; 96361; J3105; J7120; Q0177

== ENCOUNTER 2018-01-13 14:19 | Outpatient (CLI) | payer MEDICAID ==
[2018-01-13] MEDS ORDERED: LACTATED RINGERS 500 ML IV ONE (14:50)
[2018-01-13] MEDS ORDERED: NORCO 5/325 PO ONE (15:30)
== END 2018-01-13 15:51 | disposition home or self-care (01) ==
LOC: TRG 14:19
PROVIDERS: ATTEND Obstetrics & Gynecology
DX: O47.03 False labor before 37 completed weeks of gestation, third trimester (principal); Z3A.32 32 weeks gestation of pregnancy
CPT/HCPCS: 59025

== ENCOUNTER 2018-01-26 19:16 | Outpatient (CLI) | payer MEDICAID ==
[2018-01-26 19:42] VITALS: BP 130/59
[2018-01-26] MEDS ORDERED: LACTATED RINGERS 500 ML IV ONE (20:03)
[2018-01-26 21:23] LABS: Bacteria,Urine 1+ /HPF (Negative); Bilirubin,Urine NEG (Negative); Blood,Urine NEG (Negative); Color,Urine Yellow (Yellow); Mucus,Urine 3+ /HPF; Urobilinogen,Urine < 2.0 mg/dL (<2.0)
[2018-01-26] MEDS ORDERED: VISTARIL PO PRN (21:31)
--- NOTE | 2018-01-26 22:02 | Ultrasound Report ---
FINAL REPORT EXAM: US OB BPP EA ADD EXAM HISTORY: Decreased Movement TECHNIQUE: Ultrasound biophysical profile PRIORS: None. FINDINGS: Single live intrauterine gestation is present with heart rate of 146 beats per minute Biophysical profile was performed respiratory motion 2 Body movement 2 tone 2 Amniotic fluid volume 2 Total 03/05 Impression Normal biophysical profile 03/05
--- NOTE | 2018-01-26 22:15 | Ultrasound Report ---
FINAL REPORT EXAM: US OB BPP WO NON-STRESS HISTORY: decrease mvmt TECHNIQUE: Ultrasound biophysical profile PRIORS: None. FINDINGS: Single live intrauterine gestation is present with heart rate of 158 beats per minute Biophysical profile was performed respiratory motion 2 Body movement 2 tone 2 Amniotic fluid volume 2 Total 03/05 Impression Normal biophysical profile 03/05
--- NOTE | 2018-01-26 22:19 | Ultrasound Report ---
FINAL REPORT EXAM: US OB LIMITED HISTORY: Decreased Movement TECHNIQUE: Ultrasound obstetrical transabdominal PRIORS: None. FINDINGS: Twin gestations are present Twin A demonstrates cephalic positioning. The placenta is fundal. Amniotic fluid volume appears adequate largest deep pocket is 3.1 centimeters. cardiac activity is present with heart rate of 158 beats per minute Twin B demonstrates breech position. Placenta is fundal Amniotic fluid volume appears adequate largest vertical pocket 4.1 centimeters cardiac activity present with heart rate of 146 beats per minute IMPRESSION: Viable twin gestation as described above
== END 2018-01-26 21:46 | disposition home or self-care (01) ==
LOC: TRG 19:16
PROVIDERS: ATTEND Obstetrics & Gynecology
DX: O36.8130 Decreased fetal movements, third trimester, not applicable or unspecified (principal); O62.9 Abnormality of forces of labor, unspecified; Z3A.34 34 weeks gestation of pregnancy
CPT/HCPCS: 59025; 76815; 76819; 81001; 96360; Q0177

== ENCOUNTER 2018-02-12 07:30 | Inpatient (IN) | payer MEDICAID ==
--- NOTE | 2018-02-19 21:32 | History and Physical Report ---
History of Present Illness Date of examination: 02/20/18 Chief complaint: scheduled section History of present illness: Pt is a 27 year old -[place] female BETO 03/05/18 at 38w1d with a di-di twin presents for repeat with tubal ligation secondary to previous x 3 and undesired fertility. She denies vaginal bleeding or leakage of fluid. She has had care at [facility] with comanagement by MFM since 9 wks complicated by morbid obesity, pyelectasis in twin A that has resolved, Rh negative status s/p Rhogam on . She is GBS positive. Past History Past Medical History: other (morbid obesity) Past Surgical History: tonsillectomy, section (x 3 ) Family/Genetic History: heart disease, hypertension Social history: no significant social history - Obstetrical History Expected Date of Delivery: 03/05/18 Actual Gestation: 38 Week(s) 0 Day(s) : 4 Para: 3 Hx # Term Pregnancies: 3 Number of Pregnancies: 0 Spontaneous Abortions: 0 Induced : 0 Number of Living Children: 3 Medications and Allergies Allergies Allergy/AdvReac Type Severity Reaction Status Date / Time Penicillins Allergy Swelling Verified 12/10/17 15:02 Home Medications Medication Instructions Recorded Confirmed Last Taken Type Ibuprofen [Motrin] 800 mg PO Q8H PRN #30 tablet 12/18/14 06/15/16 Unknown Rx Phenazopyridine [Pyridium] 100 mg PO PC #10 tablet 12/18/14 06/15/16 Unknown Rx Sulfamethoxazole/Trimethoprim 1 each PO BID #14 tablet 12/18/14 06/15/16 Unknown Rx [Bactrim Ds] traMADol [Ultram] 50 mg PO Q6HR PRN #14 tablet 12/18/14 06/15/16 Unknown Rx Ibuprofen [Motrin] 800 mg PO Q8HR PRN #15 tablet 04/15/15 06/15/16 Unknown Rx methylPREDNISolone [Medrol Dose 4 mg PO QAM #1 pack 04/15/15 06/15/16 Unknown Rx Tawanda] Hyoscyamine Subl [Levsin Sl 0.125 0.125 mg SL Q6HR PRN #14 tablet 07/30/1506/15 Unknown Rx TAB] Ondansetron [Zofran Odt] 4 mg PO Q4H PRN #14 tab.rapdis 07/30/15 06/15/16 Unknown Rx traMADol [Ultram] 50 mg PO Q6HR PRN #20 tablet 07/30/15 06/15/16 Unknown Rx Oxycodone HCl/Acetaminophen 1 each PO Q6HR PRN #15 tablet 09/03/15 06/15/16 Unknown Rx [Percocet 7.5/325 mg] Ondansetron [Zofran Odt] 4 mg PO Q8HR #15 tab.rapdis 09/04/15 06/15/16 Unknown Rx Ferrous Sulfate [Feosol 325 MG tab] 325 mg PO BID #60 tablet 06/15/16 Unknown Rx Ibuprofen [Motrin 800 MG tab] 800 mg PO Q8HR PRN #30 tablet 06/15/16 Unknown Rx Vit-Fe Fumar-FA [ 1 tab PO QDAY #30 tablet 06/15/16 Unknown Rx Vitamin] oxyCODONE /ACETAMINOPHEN [Percocet 1 tab PO Q6HR PRN #40 tablet 06/15/16 Unknown Rx 5/325] Azithromycin [Zithromax Z-TAWANDA] 250 mg PO DAILY #6 tablet 08/20/17 Unknown Rx Nitrofurantoin Monohyd/M-Cryst 100 mg PO Q12H 7 Days #14 capsule 10/06/17 Unknown Rx [Macrobid 100 mg Capsule] Nystatin Cream [Mycostatin Cream] 1 applic TP BID 7 Days #1 tube 10/06/17 Unknown Rx Butalb/Acetaminophen/Caffeine 1 cap PO Q6HR PRN #40 cap 12/10/17 Unknown Rx [Fioricet 50-300-40 mg CAP] Review of Systems All systems: negative - Physical Exam Breasts: Positive: deferred Cardiovascular: Regular rate Lungs: Positive: Clear to auscultation Abdomen: Positive: soft (obese, gravid ) Uterus: Positive: enlarged (gravid ) Extremities: Positive: edema (trace) - Obstetrical FHR: auscultation normal Uterine Contraction Monitor Mode: External Uterine Contraction Pattern: Irregular Uterine Tone Measurement Phase: Resting Results All other labs normal. Assessment and Plan A: Di-Di twin IUP at 38w1d Previous x 3 Morbid Obesity Undesired Fertility P: Proceed with repeat section with bilateral tubal ligation and other indicated procedures.
[2018-02-20] MEDS ORDERED: PITOCin/NS 20 UNIT/1000ML DRIP 20 UNITS/1,000 ML BAG IV SCH ×2 (05:00→11:49)
[2018-02-20] MEDS ORDERED: LACTATED RINGERS 1,000 ML IV SCH (05:00)
[2018-02-20] MEDS ORDERED: REGLAN IV ONE (06:00)
[2018-02-20] MEDS ORDERED: BICITRA PO ONE (06:00)
[2018-02-20] MEDS ORDERED: CLEOCIN 600 MG/50 mL 600 MG/50 ML BAG IV NR (06:00)
[2018-02-20] MEDS ORDERED: PEPCID IV ONE (06:00)
[2018-02-20] MEDS ORDERED: GARAMYCIN 140 MG in NACL 0.9% 100 ML IV SCH (06:30)
[2018-02-20 06:55] LABS: Basophils % (Auto) 0.4 % (0.0-1.8); Eosinophils # (Auto) 0.2 K/mm3 (0.0-0.4); Eosinophils % (Auto) 1.8 % (0.0-4.3); Hematocrit 29.1 % (30.3-42.9); Hemoglobin 9.3 gm/dl (10.1-14.3); Lymphocytes # (Auto) 2.2 K/mm3 (1.2-5.4); Lymphocytes % (Auto) 23.8 % (13.4-35.0); Mean Corpuscular HGB Conc 32 % (30-34); Mean Corpuscular Volume 70 fl (79-97); Monocytes # (Auto) 0.5 K/mm3 (0.0-0.8); Monocytes % (Auto) 5.7 % (0.0-7.3); Platelet Count 244 K/mm3 (140-440); Red Blood Count 4.15 M/mm3 (3.65-5.03); Red Cell Distribution Width 17.5 % (13.2-15.2)
[2018-02-20 06:56] LABS: Mean Corpuscular Hemoglobin 22 pg (28-32)
--- NOTE | 2018-02-20 07:40 | Anesthesia Consultation ---
Anesthesia Consult and Med Hx Date of service: 02/20/18 - Airway Anesthetic Teeth Evaluation: Good ROM Head & Neck: Adequate Mental/Hyoid Distance: Adequate Mallampati Class: Class III Intubation Access Assessment: Possibly Difficult - Pre-Operative Health Status ASA Pre-Surgery Classification: ASA3 Proposed Anesthetic Plan: Epidural, Spinal - Pulmonary Hx Smoking: No Hx Asthma: No COPD: No Hx Pneumonia: No Hx Sleep Apnea: No - Cardiovascular System Hx Hypertension: No Hx Heart Murmur: No - Central Nervous System Hx Seizures: Yes (Last one in 2009) Hx Psychiatric Problems: No - Gastrointestinal Hx Gastroesophageal Reflux Disease: No - Endocrine Hx Renal Disease: No Hx End Stage Renal Disease: No Hx Hypothyroidism: No Hx Hyperthyroidism: No - Hematic Hx Anemia: No Hx Sickle Cell Disease: No - Other Systems Hx Alcohol Use: No Hx Cancer: No Hx Obesity: Yes - Additional Comments Anesthesia Medical History Comments: twin delivery
--- NOTE | 2018-02-20 07:40 | Anesthesia Day of Surgery ---
Anesthesia Day of Surgery - Day of Surgery Patient Examined: Yes Patient H&P Reviewed: Yes Patient is NPO: Yes
[2018-02-20] MEDS ORDERED: PHENERGAN PO PRN (07:41)
[2018-02-20] MEDS ORDERED: ZOFRAN IV PRN ×2 (07:41→11:49)
[2018-02-20] MEDS ORDERED: PHENERGAN PR PRN (07:41)
[2018-02-20] MEDS ORDERED: BENADRYL IV PRN (07:41)
[2018-02-20] MEDS ORDERED: NARCAN 0.4 MG/1 ML IV PRN ×2 (07:41→11:49)
[2018-02-20] MEDS ORDERED: TORADOL IV PRN (07:42)
[2018-02-20] MEDS ORDERED: SODIUM CHLORIDE FLUSH SYRINGE 10 ML IV NR ×2 (08:00→11:49)
[2018-02-20] MEDS ORDERED: LACTATED RINGERS 1,000 ML ONE (08:19)
[2018-02-20] MEDS ORDERED: XYLOCAINE MPF 2% ONE (08:21)
[2018-02-20] MEDS ORDERED: NEO SYNEPHRINE/NS Syringe(OR USE) IV ONE (08:22)
[2018-02-20] MEDS ORDERED: WATER FOR IRRIG STERILE IR ONE (08:57)
[2018-02-20] MEDS ORDERED: NACL 0.9% IR ONE (08:57)
[2018-02-20] MEDS ORDERED: NACL 0.9% 1000 ML 1,000 ML ONE (08:59)
[2018-02-20] MEDS ORDERED: VERSED ONE ×2 (09:16→09:34)
--- NOTE | 2018-02-20 09:57 | Procedure Note ---
OB Delivery Note - Delivery Date of Delivery: 02/20/18 Surgeon: RACHELE DOWNEY Cracking Machine Operator: MICHAEL DAI Estimated blood loss: other (900 mL) - Section Preop diagnosis: repeat , desires sterilization, other malpresentation Postop diagnosis: same section procedure: section, repeat low transverse, bilateral tubal ligation Disposition: PACU Complications: none Narrative: Please see operative note. - Infant A at 1 minute: 8 at 5 minutes: 9 Infant Gender: Male (2334g (5lb 2 oz) @ 0845 am) B at 1 minute: 8 at 5 minutes: 9 Infant Gender: Female (2656g (5lb 14 oz) @ 0847 am)
--- NOTE | 2018-02-20 10:07 | Operative Report ---
Operative Report Operative Report: Date of procedure: February 20, 2018 Preoperative diagnosis: 1) Di-Di Twin IUP at 38w1d 2) Previous section x 3 3) Undesired Fertility 4) Morbid Obesity BMI 58 Postoperative diagnosis: Same Procedure: 1) Repeat low transverse section 2) Bilateral tubal ligation via [place] method Surgeon: Dot Recinos M.D. Anesthesia: Spinal-Epidural Findings: 1) Twin A: Viable male , Apgars 8 and 9, weight 2334g, (5 lb 2 oz) in vertex presentation Twin B: Viable female , Apgard 8 and 9, weight 2656g (5lb 14 oz) in complete breech presentation 2) Normal-appearing uterus ovaries and tubes Estimated blood loss: 900 mL IV fluids: 1800 mL Urine output: 100 mL, clear at the end of the procedure Drains: Fontana to gravity Specimens: Placenta to pathology Complications: None. Counts correct x 3 Disposition: Stable to PACU Indication for procedure: Pt is a 27 year old with di-di twin IUP at 38w1d with a h/o three previous sections and undesired fertility who presents for repeat section and bilateral tubal ligation. Operation in detail: After the risks, benefits, alternatives and complications were explained to the patient she gave informed consent for the procedure. She was subsequently taken to the operating room where spinal-epidural anesthesia was noted to be adequate. She was subsequently placed in the dorsal supine position with leftward tilt and prepped and draped in a normal sterile fashion. heart tones were noted x 2 prior to incision. A timeout was performed. A Pfannenstiel skin incision was made with the knife and carried down to the layer of the fascia with the Bovie. The fascia was incised in the midline and the fascial incision was extended bilaterally with the Bovie. Attention was then turned to the superior aspect of the incision which was grasped with two Kochers, tented up, and dissected off the rectus muscles. Attention was then turned to the inferior aspect of the incision which was grasped with two Kochers , tented up and dissected off the rectus muscles. The rectus muscles were then in the midline. The peritoneum was then entered bluntly. The peritoneal incision was extended with good visualization of the bladder. The peritoneal incision was then stretched. An Jules self-retaining retractor was placed for visualization. The bladder blade was placed. The vesicouterine peritoneum was grasped with smooth pickups and incised with Metzenbaum scissors. Metzenbaum scissors were used to extend the incision bilaterally. The bladder flap was then created digitally and the bladder blade was replaced. A transverse incision was made in the lower uterine segment with a knife and extended bilaterally with the bandage scissors. The head pf twin A was delivered without difficulty followed by shoulders and body. was bulb suctioned at delivery. The cord was clamped and cut and the was handed to NICU staff in attendance. Amniotomy was peformed on the second sac. Twin B's buttocks and legs were visible at the hysterotomy, then the remainder of the fetus delivered easily with gentle traction. The cord was clamped and cut and and the was handed to NICU staff in attendance. Cord blood was collected. The placenta was then delivered manually. The uterus was then exteriorized and cleared of all clots and debris. The hysterotomy was then reapproximated with 0 Vicryl in a running locked fashion. A second layer of the same suture was used in imbricating fashion. A figure-of- eight of 2-0 Vicryl was used at the right side of the hysterotomy to obtain hemostasis. Attention was then turned to the tubal ligation. The right tube was identified and followed to to the fimbriae. The tube was then grasped with a Beryl and ligated via the [place] method using 0 Chromic. Attention was then turned to the left tube which in a similar fashion was followed down to the fimbriae, grasped with a Beryl, and ligated via the [place] method using 0 Chromic. Hemostasis was noted. The hysterotomy was inspected and hemostasis was noted. The uterus was then returned to the peritoneal cavity. All instruments were removed from the abdominal cavity. The gutters were irrigated and cleared of all clots and debris. The hysterotomy was again inspected and noted to be hemostatic. Surgicel was then placed over the hysterotomy. The peritoneum was reapproximated with 2-0 Vicryl in a running fashion incorporating the rectus muscles. Surgicel was placed over the rectus muscles. The fascia was reapproximated with 0 Vicryl in a running fashion. The subcutaneous tissue was reapproximated wtih 3-0 Vicryl in a running fashion. The skin was reapproximated with 4-0 Vicryl in a subcuticular fashion. The incision was then covered with steri strips and a pressure dressing. The procedure was then ended. The patient tolerated the procedure well and was taken to the PACU in stable condition. All instrument, lap, and needle counts were correct 3.
[2018-02-20] MEDS: DILAUDID IV PRN ×4 (10:24→18:37)
[2018-02-20] MEDS ORDERED: MYLICON PO PRN (11:49)
[2018-02-20] MEDS ORDERED: TUCKS PAD TP PRN (11:49)
[2018-02-20] MEDS ORDERED: MILK OF MAGNESIA PO PRN (11:49)
[2018-02-20] MEDS ORDERED: D5LR 1,000 ML IV SCH (11:49)
[2018-02-20] MEDS ORDERED: LANSINOH TP PRN (11:49)
[2018-02-20] MEDS: TORADOL IV PRN ×2 (16:08→22:10)
[2018-02-20] MEDS: CLEOCIN 600 MG/50 mL 600 MG/50 ML BAG IV SCH (18:37)
[2018-02-20 23:01] LABS: Hematocrit 25.9 % (30.3-42.9); Hemoglobin 8.8 gm/dl (10.1-14.3)
[2018-02-21] MEDS: PERCOCET 5/325 PO PRN ×4 (00:38→23:23)
[2018-02-21] MEDS: CLEOCIN 600 MG/50 mL 600 MG/50 ML BAG IV SCH (00:53)
[2018-02-21] MEDS: MOTRIN PO PRN ×2 (06:07→23:27)
[2018-02-21] MEDS: FEOSOL PO SCH (08:20)
[2018-02-21] MEDS ORDERED: M-M-R II VACCINE SUB-Q ONE (10:09)
[2018-02-21] MEDS ORDERED: BOOSTRIX IM ONE (10:09)
--- NOTE | 2018-02-21 13:05 | Progress Note ---
Assessment and Plan - Patient Problems (1) deliv due to previous difficult deliv, deliv, curr hospitaliz Current Visit: No Status: Acute Plan to address problem: Improved pain control Supportive postoperative care Subjective - Subjective Date of service: 02/21/18 Interval history: The patient complains of postoperative pain. She reports that her pain is worse than her previous delivery. A Fontana has been removed and she has been able to void. The patient is ambulating in the room. Patient reports: appetite normal, voiding normally, pain poorly controlled Hermann: doing well, in NICU Objective - Vital Signs Latest vital signs: Vital Signs Temp Pulse Resp BP BP Pulse Ox 02/21/18 08:20 98.1 F 92 H 20 139/71 98 02/21/18 04:10 98.6 F 20 L 18 142/68 02/21/18 00:00 98.8 F 20 L 18 131/64 02/20/18 22:10 18 02/20/18 20:05 98.0 F 20 L 18 129/79 02/20/18 15:27 97.7 F 76 22 132/81 98 02/20/18 13:32 96/54 100 Intake and Output 02/20/18 02/21/18 02/21/18 22:59 06:59 14:59 Intake Total 290 240 Output Total 1400 800 Balance -1110 -560 Intake: IV 50 CLEOCIN 600 MG/50 mL 600 50 mg In 50 ml @ 100 mls/hr IV Q8H [facility] Rx#:[id number] Oral 240 240 Output: Urine 1400 800 Indwelling Catheter 1300 Uretheral (Fontana) 100 Void 800 Other: Intake, Other Source Saline Solution Total, Intake Amount 240 240 Total, Output Amount 600 800 # Voids Void 1 # Bowel Movements 0 - Exam Breasts: Present: deferred Cardiovascular: Present: Regular rate Lungs: Present: Clear to auscultation Incision: Present: dressed - Labs Labs: Abnormal lab results 02/20/18 Range/Units 22:44 Hgb 8.8 L (10.1-14.3) gm/dl Hct 25.9 L (30.3-42.9) %
[2018-02-21] MEDS: TORADOL IV PRN (13:10)
[2018-02-21] MEDS: AMBIEN PO PRN (23:28)
[2018-02-22] MEDS: PERCOCET 5/325 PO PRN ×3 (06:09→21:13)
[2018-02-22] MEDS: MOTRIN PO PRN ×2 (06:15→17:34)
--- NOTE | 2018-02-22 13:24 | Progress Note ---
Assessment and Plan - Patient Problems (1) deliv due to previous difficult deliv, deliv, curr hospitaliz Current Visit: No Status: Acute Plan to address problem: Demonstrating clinical improvement Continue to monitor symptoms closely. Subjective - Subjective Date of service: 02/22/18 Interval history: The patient is having improvement in her pain control. She is tolerating a regular diet without complication. The patient has been ambulating to the ICU. Patient reports: appetite normal, voiding normally, pain well controlled : doing well, in NICU Objective - Vital Signs Latest vital signs: Vital Signs Temp Pulse Resp BP BP Pulse Ox 02/22/18 08:43 98.6 F 89 16 120/62 98 02/22/18 08:00 16 02/22/18 01:45 98.2 F 91 H 18 122/72 Intake and Output 02/21/18 02/22/18 02/22/18 22:59 06:59 14:59 Intake Total 720 Balance 720 Intake: Intake, Free Water 720 Other: # Voids Void 3 1 - Exam Incision: Present: dressed
[2018-02-22] MEDS: PROzac PO SCH (18:15)
[2018-02-23] MEDS: PERCOCET 5/325 PO PRN ×4 (01:13→23:50)
[2018-02-23] MEDS: MOTRIN PO PRN ×4 (01:14→22:41)
[2018-02-23] MEDS: AMBIEN PO PRN (01:15)
[2018-02-23] MEDS: FEOSOL PO SCH (09:49)
[2018-02-23] MEDS: PROzac PO SCH (09:49)
[2018-02-23] MEDS ORDERED: LASIX PO ONE (12:19)
--- NOTE | 2018-02-23 15:20 | Progress Note ---
Assessment and Plan - Patient Problems (1) deliv due to previous difficult deliv, deliv, curr hospitaliz Current Visit: No Status: Acute Plan to address problem: EKG performed with findings of normal sinus rhythm supportive care antidepressant started Subjective - Subjective Date of service: 02/23/18 Interval history: The reports having left sided swelling in her hand and lower extremities. The patient is demonstrating signs of depression. Her father recently and the patient is still grieving his loss. She complains of intermittent chest pain but no difficulty with breathing. Pulse ox 99% on RA. Will perform an EKG and administer bicitra. Patient reports: voiding normally, flatus, appetite poor, pain poorly controlled : doing well, in NICU Objective - Vital Signs Latest vital signs: Vital Signs Temp Pulse Resp BP BP BP Pulse Ox 02/23/18 13:13 78 122/68 02/23/18 11:55 79 99 02/23/18 07:47 18 02/23/18 07:34 98.2 F 70 18 128/70 98 02/23/18 01:15 97.7 F 78 20 131/77 02/22/18 16:42 98.3 F 79 18 141/87 99 Intake and Output 02/23/18 02/23/18 02/23/18 06:59 14:59 22:59 Intake Total 600 Balance 600 Intake: Intake, Free Water 600 Other: # Voids Void 1
[2018-02-23] MEDS ORDERED: BICITRA PO PRN (15:21)
--- NOTE | 2018-02-24 08:02 | Progress Note ---
Assessment and Plan A/P POD 4 csec for twins EKG normal postop improving consider d/c home Subjective - Subjective Date of service: 02/24/18 Principal diagnosis: s/p csec for twins Patient reports: appetite normal, voiding normally, pain well controlled, flatus , ambulating normally : doing well, in NICU Objective - Vital Signs Latest vital signs: Vital Signs Pulse Resp BP Pulse Ox 02/23/18 15:30 20 02/23/18 15:29 20 02/23/18 14:45 87 20 128/62 99 02/23/18 13:13 78 122/68 02/23/18 11:55 79 99 Intake and Output 02/23/18 02/24/18 02/24/18 23:59 07:59 15:59 Output Total 500 Balance -500 Output: Urine 500 Void 500 Other: Total, Output Amount 500 - Exam Breasts: Present: normal Cardiovascular: Present: Regular rate, Normal S1 Lungs: Present: Clear to auscultation, Normal air movement Abdomen: Present: normal appearance, soft, normal bowel sounds. Absent: distention, tenderness, guarding Vulva: both: normal Uterus: Present: normal, firm, fundal height below umbilicus. Absent: bogginess , tenderness Extremities: Present: normal Deep Tendon Reflex Grade: Normal +2
[2018-02-24] MEDS: PERCOCET 5/325 PO PRN (10:06)
[2018-02-24] MEDS: PROzac PO SCH (10:07)
[2018-02-24] MEDS: FEOSOL PO SCH (10:08)
--- NOTE | 2018-02-24 13:22 | Discharge Summary ---
Providers - Providers Date of Admission: 02/20/18 05:47 Date of discharge: 02/24/18 Attending physician: RACHELE DOWNEY 02/20/18 11:49 Consult to [place] Counselor [CONS] Routine Reason For Exam: Primary care physician: RACHELE DOWNEY Hospitalization Procedure: repeat low transverse Laceration: none Other procedures: none Discharge diagnosis: IUP at term delivered baby: twins Condition at discharge: Good Disposition: DC-01 TO HOME OR SELFCARE Plan - Discharge Medications Prescriptions: Docusate Sodium [Colace] 100 mg PO BID PRN #60 capsule PRN Reason: Constipation Docusate Sodium [Colace] 100 mg PO BID PRN #60 capsule PRN Reason: Constipation Ferrous Sulfate [Feosol 325 MG tab] 325 mg PO BID #60 tablet Ferrous Sulfate [Feosol 325 MG tab] 325 mg PO BID #60 tablet Ibuprofen [Motrin] 800 mg PO Q8HR PRN #60 tablet PRN Reason: Pain , Severe (7-10) Ibuprofen [Motrin] 800 mg PO Q8HR PRN #60 tablet PRN Reason: Pain, Mild (1-3) Oxycodone HCl/Acetaminophen [Percocet 7.5/325 mg] 1 each PO Q6HR PRN #45 tablet PRN Reason: Pain Oxycodone HCl/Acetaminophen [Percocet 7.5/325 mg] 1 each PO Q6HR PRN #45 tablet PRN Reason: Pain - Provider Discharge Summary Activity: routine, no sex for 6 weeks, no heavy lifting 4 weeks, no strenuous exercise Additional instructions: [] Smoking cessation referral if applicable(refer to patient education folder for contact #) [] Refer to [facility] Booklet Call your doctor immediately for: * Fever > 100.5 * Heavy vaginal bleeding ( >1 pad per hour) * Severe persistent headache * Shortness of breath * Reddened, hot, painful area to leg or breast * Drainage or odor from incision. * Keep incision clean and dry at all times and follow doctor's instructions regarding bathing/showering - Follow up plan Follow up: RACHELE DOWNEY MD [Primary Care Provider] - 7 Days (RTO incision check and schedule infant circumcison)
[2018-02-24 16:55] VITALS: BP 143/77
== END 2018-02-24 15:55 | disposition home or self-care (01) | DRG 765 ==
LOC: APU 02-20 05:47 → OB 02-20 11:48
PROVIDERS: ADMIT Obstetrics & Gynecology; ATTEND Obstetrics & Gynecology
PROC: 10D00Z1 Extraction of Products of Conception, Low, Open Approach (ICD-10-PCS; principal; 2018-02-20)
PROC: 0UB70ZZ Excision of Bilateral Fallopian Tubes, Open Approach (ICD-10-PCS; 2018-02-20)
PROC: 3E0234Z Introduction of Serum, Toxoid and Vaccine into Muscle, Percutaneous Approach (ICD-10-PCS; 2018-02-21)
PROC: 30233S1 Transfusion of Nonautologous Globulin into Peripheral Vein, Percutaneous Approach (ICD-10-PCS; 2018-02-21)
DX: O34.211 Maternal care for low transverse scar from previous cesarean delivery (principal); Z68.43 Body mass index [BMI] 50.0-59.9, adult; Z3A.38 38 weeks gestation of pregnancy; Z37.2 Twins, both liveborn; E66.01 Morbid (severe) obesity due to excess calories; Z71.3 Dietary counseling and surveillance; O30.043 Twin pregnancy, dichorionic/diamniotic, third trimester; O99.214 Obesity complicating childbirth; O99.824 Streptococcus B carrier state complicating childbirth; Z82.49 Family history of ischemic heart disease and other diseases of the circulatory system; Z88.0 Allergy status to penicillin; O32.8XX2 Maternal care for other malpresentation of fetus, fetus 2; Z30.2 Encounter for sterilization; G89.18 Other acute postprocedural pain; Z23 Encounter for immunization; Z29.13 Encounter for prophylactic Rho(D) immune globulin
CPT/HCPCS: 36415; 59025; 85014; 85018; 85025; 85461; 86850; 86870; 86900; 86901; 88302; 88307; 93005; 93010; 96360; 96361; J1170; J1580; J1885; J2250; J2370; J2590; J2765; J2790; J7030; J7120; J7121

== ENCOUNTER 2021-05-18 10:12 | Emergency (ER) | payer MEDICAID, OTHER ==
[2021-05-18] MEDS ORDERED: ACETAMINOPHEN 500 MG TAB PO ONE (10:34)
[2021-05-18] MEDS ORDERED: ONDANSETRON 4 MG/2 ML INJ IV ONE (10:34)
[2021-05-18] MEDS ORDERED: KETOROLAC 30 MG/1 ML INJ IV ONE (10:34)
[2021-05-18] MEDS ORDERED: MORPHINE 4 MG/1 ML INJ IV ONE (10:34)
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
[2021-05-18 12:53] VITALS: BP 117/62
== END 2021-05-18 12:59 | disposition home or self-care (01) ==
LOC: ED 10:12
DX: S16.1XXA Strain of muscle, fascia and tendon at neck level, initial encounter (principal); R07.89 Other chest pain; R51.9 Headache, unspecified; Z90.89 Acquired absence of other organs; Z88.0 Allergy status to penicillin; Z91.010 Allergy to peanuts; V87.7XXA Person injured in collision between other specified motor vehicles (traffic), initial encounter; Y93.89 Activity, other specified; Y92.488 Other paved roadways as the place of occurrence of the external cause; Y99.8 Other external cause status
CPT/HCPCS: 71046; 72050; 96374; 96375; 99283; J1885; J2270; J2405